=== PATIENT | female | born 1940 | race African-American/Black ===

== ENCOUNTER 2017-05-30 12:12 | Observation (INO) | payer OTHER ==
[~2017-05-30] VITALS: Ht 157.5 cm; Wt 66.9 kg
[2017-05-30 12:47] LABS: HEMATOCRIT 33.4 % (36.0-46.0); MCH 27.5 PG (29.0-34.0); MCHC 31.7 G/DL (30.0-36.0); MCV 86.5 FL (83-99); MEAN PLAT.VOLUME 9.9 uM^3 (9.5-12.4); PLATELET COUNT 179 K/uL (156-360); RBC DIS.WIDTH-CV 15.3 % (11.8-14.6); RBC DIS.WIDTH-SD 48.6 % (39-53); RED BLOOD COUNT 3.86 M/uL (3.80-5.20); WHITE BLOOD COUNT 4.7 K/uL (4.1-10.2)
[2017-05-30 12:56] LABS: CHLORIDE 105 mEq/L (99-109); POTASSIUM 3.1 mEq/L (3.7-5.4); SODIUM 139 mEq/L (136-147)
[2017-05-30 12:58] LABS: GLUCOSE 83 mg/dL (70-99)
[2017-05-30 12:59] LABS: ANION GAP 10 MEQ/L (2-14)
[2017-05-30 13:02] LABS: GFR ESTIMATE (CALCULATED) > 59 mL/min/
[2017-05-30 13:03] LABS: UREA NITROGEN (BUN) 17 mg/dL (9-23)
[2017-05-30 13:08] LABS: TROP-I INTERPRETATION NEGATIVE; TROPONIN-I 0.11 ng/mL (0.0-0.30)
[2017-05-30] MEDS ORDERED: PRINIVIL20 MG PO (13:55)
[2017-05-30] MEDS ORDERED: LIPITOR80 MG PO (13:55)
[2017-05-30] MEDS ORDERED: ARICEPT10 MG PO (13:55)
[2017-05-30] MEDS ORDERED: CYANOCOBALAM1000 MCG PO (13:56)
[2017-05-30] MEDS ORDERED: ZESTRIL2.5 MG PO (13:56)
[2017-05-30] MEDS ORDERED: ASPIR 8181 M1 PO (13:56)
[2017-05-30] MEDS ORDERED: VITAMIN D31000 UNI2 PO (13:56)
[2017-05-30 17:05] LABS: TROP-I INTERPRETATION NEGATIVE; TROPONIN-I 0.12 ng/mL (0.0-0.30)
[2017-05-30 17:53] VITALS: BP 182/81
[2017-05-30 19:10] VITALS: BP 138/74
[2017-05-30 19:19] LABS: TROP-I INTERPRETATION NEGATIVE; TROPONIN-I 0.13 ng/mL (0.0-0.30)
[2017-05-30 23:29] VITALS: BP 139/67
[2017-05-31 01:49] LABS: TROP-I INTERPRETATION NEGATIVE; TROPONIN-I 0.13 ng/mL (0.0-0.30)
[2017-05-31 04:19] VITALS: BP 171/77
[2017-05-31 07:51] VITALS: BP 191/87
[2017-05-31 08:21] VITALS: BP 141/63
[2017-05-31] MEDS ORDERED: NITROSTAT0.4 MG SL (10:05)
[2017-05-31] MEDS ORDERED: METOPROLOL TART25 MG PO (10:06)
== END 2017-05-31 13:03 | disposition home or self-care (01) ==
LOC: EME 12:12 → EDOF 14:53 → 5WEST 14:53 → ENRESERV 14:54 → 5WEST 17:46
PROVIDERS: Internal Medicine
DX: R07.9 Chest pain, unspecified (principal); I25.10 Atherosclerotic heart disease of native coronary artery without angina pectoris; I10 Essential (primary) hypertension; E78.5 Hyperlipidemia, unspecified; Z95.1 Presence of aortocoronary bypass graft; Z95.820 Peripheral vascular angioplasty status with implants and grafts; I71.4 Abdominal aortic aneurysm, without rupture; M79.602 Pain in left arm; R42 Dizziness and giddiness; D64.9 Anemia, unspecified
CPT/HCPCS: 71020; 80048; 84484; 85027; 93005; 99281; 99285; G0378; J0360; J1650; J2270

== ENCOUNTER 2017-06-02 10:12 | Inpatient (IN) | payer OTHER ==
[~2017-06-02] VITALS: Ht 157.5 cm; Wt 75.4 kg
[~2017-06-02 10:12] MED LIST: ARICEPT10 MG PO; ASPIR 8181 M1 PO; CYANOCOBALAM1000 MCG PO; LIPITOR80 MG PO; METOPROLOL TART25 MG PO; NITROSTAT0.4 MG SL; PRINIVIL20 MG PO; VITAMIN D31000 UNI2 PO; ZESTRIL2.5 MG PO
[2017-06-02 10:39] LABS: HEMATOCRIT 31.9 % (36.0-46.0); MCH 27.8 PG (29.0-34.0); MCHC 31.7 G/DL (30.0-36.0); MCV 87.9 FL (83-99); MEAN PLAT.VOLUME 10.2 uM^3 (9.5-12.4); PLATELET COUNT 194 K/uL (156-360); RBC DIS.WIDTH-CV 15.7 % (11.8-14.6); RBC DIS.WIDTH-SD 50.6 % (39-53); RED BLOOD COUNT 3.63 M/uL (3.80-5.20); WHITE BLOOD COUNT 4.6 K/uL (4.1-10.2)
[2017-06-02 10:50] LABS: CHLORIDE 109 mEq/L (99-109); POTASSIUM 3.3 mEq/L (3.7-5.4); SODIUM 142 mEq/L (136-147)
[2017-06-02 10:51] LABS: GLUCOSE 75 mg/dL (70-99)
[2017-06-02 10:53] LABS: ANION GAP 7 MEQ/L (2-14)
[2017-06-02 10:55] LABS: GFR ESTIMATE (CALCULATED) > 59 mL/min/
[2017-06-02 10:56] LABS: UREA NITROGEN (BUN) 19 mg/dL (9-23)
[2017-06-02 11:00] LABS: TROP-I INTERPRETATION NEGATIVE; TROPONIN-I 0.14 ng/mL (0.0-0.30)
[2017-06-02 18:03] VITALS: BP 200/84
[2017-06-02 18:26] VITALS: BP 173/79
[2017-06-02 19:57] LABS: TROP-I INTERPRETATION NEGATIVE; TROPONIN-I 0.16 ng/mL (0.0-0.30)
[2017-06-02 20:55] VITALS: BP 148/50
[2017-06-03 00:02] VITALS: BP 168/77
[2017-06-03 04:15] LABS: TROP-I INTERPRETATION NEGATIVE; TROPONIN-I 0.13 ng/mL (0.0-0.30)
[2017-06-03 04:32] VITALS: BP 170/74
[2017-06-03 08:00] VITALS: BP 148/76
[2017-06-03 11:26] VITALS: BP 133/74
[2017-06-03] MEDS ORDERED: CARDURA2 M1 PO (14:58)
[2017-06-03 16:53] VITALS: BP 131/84
[2017-06-03 19:40] VITALS: BP 155/72
[2017-06-04 00:45] VITALS: BP 151/69
[2017-06-04 04:21] VITALS: BP 135/63
[2017-06-04 08:15] VITALS: BP 139/65
[2017-06-04 11:16] LABS: HEMATOCRIT 30.1 % (36.0-46.0); MCH 27.4 PG (29.0-34.0); MCHC 30.9 G/DL (30.0-36.0); MCV 88.5 FL (83-99); MEAN PLAT.VOLUME 10.9 uM^3 (9.5-12.4); PLATELET COUNT 154 K/uL (156-360); RBC DIS.WIDTH-CV 15.9 % (11.8-14.6); RBC DIS.WIDTH-SD 51.5 % (39-53); WHITE BLOOD COUNT 4.2 K/uL (4.1-10.2)
[2017-06-04 11:32] LABS: ANION GAP 8 MEQ/L (2-14); CHLORIDE 108 MEQ/L (99-109); MAGNESIUM 1.7 mg/dl (1.3-2.7); POTASSIUM 3.9 MEQ/L (3.7-5.4); SAMPLE HEMOLYSIS CHECK 0; SAMPLE ICTERIC CHECK 0; SAMPLE LIPEMIA CHECK 0; SODIUM 140 MEQ/L (136-147)
[2017-06-04 11:37] LABS: GFR ESTIMATE (CALCULATED) > 59 mL/min/; UREA NITROGEN (BUN) 16 mg/dL (9-23)
[2017-06-04 11:39] LABS: GLUCOSE 119 mg/dL (70-99)
[2017-06-04 11:51] VITALS: BP 129/58
[2017-06-04 15:31] VITALS: BP 138/69
[2017-06-04 19:15] VITALS: BP 134/74
[2017-06-05 00:09] VITALS: BP 145/68
[2017-06-05 03:21] VITALS: BP 109/63
[2017-06-05 05:51] LABS: HEMATOCRIT 28.6 % (36.0-46.0); MCH 28.5 PG (29.0-34.0); MCHC 32.2 G/DL (30.0-36.0); MCV 88.5 FL (83-99); MEAN PLAT.VOLUME 10.5 uM^3 (9.5-12.4); PLATELET COUNT 151 K/uL (156-360); RBC DIS.WIDTH-CV 15.6 % (11.8-14.6); RBC DIS.WIDTH-SD 50.4 % (39-53); RED BLOOD COUNT 3.23 M/uL (3.80-5.20); WHITE BLOOD COUNT 4.5 K/uL (4.1-10.2)
[2017-06-05 06:12] LABS: ANION GAP 8 MEQ/L (2-14); CHLORIDE 107 MEQ/L (99-109); GFR ESTIMATE (CALCULATED) > 59 mL/min/; GLUCOSE 85 mg/dL (70-99); MAGNESIUM 1.7 mg/dl (1.3-2.7); POTASSIUM 4.1 MEQ/L (3.7-5.4); SAMPLE HEMOLYSIS CHECK 0; SAMPLE ICTERIC CHECK 0; SAMPLE LIPEMIA CHECK 0; SODIUM 141 MEQ/L (136-147); UREA NITROGEN (BUN) 13 mg/dL (9-23)
[2017-06-05 07:16] VITALS: BP 128/60
[2017-06-05] MEDS ORDERED: CIPRO500 MG PO (10:56)
[2017-06-05] MEDS ORDERED: FLAGYL500 MG PO (10:56)
== END 2017-06-05 14:28 | disposition home or self-care (01) | DRG 392 ==
LOC: EME 10:12 → EDOF 15:31 → ENRESERV 15:32 → 5WEST 17:32 → ENRESERV 06-03 17:09 → CANRESERV 06-03 17:09 → ENPENDDIS 06-05 → 5WEST 06-05 14:28
PROVIDERS: Internal Medicine
DX: K57.92 Diverticulitis of intestine, part unspecified, without perforation or abscess without bleeding (principal); I25.110 Atherosclerotic heart disease of native coronary artery with unstable angina pectoris; R07.9 Chest pain, unspecified; I71.2 Thoracic aortic aneurysm, without rupture; I25.2 Old myocardial infarction; I10 Essential (primary) hypertension; D64.9 Anemia, unspecified; E87.6 Hypokalemia; E78.5 Hyperlipidemia, unspecified; Z68.30 Body mass index [BMI] 30.0-30.9, adult; Z95.1 Presence of aortocoronary bypass graft
CPT/HCPCS: 71020; 74176; 80048; 83735; 84484; 85027; 90686; 93005; 99281; 99285; G0378; J0360; J0744; J1650; J2270; J2405; S0030

== ENCOUNTER 2017-09-11 11:38 | Emergency (ER) | payer OTHER ==
[~2017-09-11] VITALS: Ht 157.5 cm; Wt 64.5 kg
[~2017-09-11 11:38] MED LIST changes: +CARDURA2 M1 PO; +CIPRO500 MG PO; +FLAGYL500 MG PO
[2017-09-11 12:44] LABS: HEMATOCRIT 32.2 % (36.0-46.0); HEMOGLOBIN 10.5 G/DL (11.9-15.5); MCH 29.1 PG (29.0-34.0); MCHC 32.6 G/DL (30.0-36.0); MCV 89.2 FL (83-99); PLATELET COUNT 184 K/uL (156-360); RBC DIS.WIDTH-CV 15.2 % (11.8-14.6); RBC DIS.WIDTH-SD 49.9 % (39-53); RED BLOOD COUNT 3.61 M/uL (3.80-5.20); WHITE BLOOD COUNT 3.9 K/uL (4.1-10.2)
[2017-09-11 12:55] LABS: CHLORIDE 109 mEq/L (99-109); POTASSIUM 3.6 mEq/L (3.7-5.4); SODIUM 144 mEq/L (136-147)
[2017-09-11 12:57] LABS: GLUCOSE 115 mg/dL (70-99)
[2017-09-11 13:01] LABS: CREATININE 0.8 mg/dL (0.6-1.3); GFR ESTIMATE (CALCULATED) > 59 mL/min/; UREA NITROGEN (BUN) 14 mg/dL (9-23)
[2017-09-11] MEDS ORDERED: MEDROL DOSEPAK4 MG PO (17:29)
[2017-09-11] MEDS ORDERED: NAPROSYN500 MG PO (17:29)
[2017-09-11 17:50] VITALS: BP 155/78
== END 2017-09-11 17:52 | disposition left against medical advice (07) ==
LOC: EME 11:38
PROVIDERS: Emergency Medicine
DX: M54.40 Lumbago with sciatica, unspecified side (principal); Z53.20 Procedure and treatment not carried out because of patient's decision for unspecified reasons; I10 Essential (primary) hypertension; I25.2 Old myocardial infarction; Z95.1 Presence of aortocoronary bypass graft; Z79.82 Long term (current) use of aspirin
CPT/HCPCS: 71046; 80048; 85027; 85379; 93005; 99281; 99284; J1100